=== PATIENT | male | born 1990 ===

== ENCOUNTER 2018-01-08 18:59 | Emergency (ER) | payer SELFPAY ==
[2018-01-08 19:08] VITALS: RESP 18
--- NOTE | 2018-01-08 19:39 | C.PDOC ---
History Of Present Illness 27 year old male presents to the ED c/o cough, congestion, sore throat, SOB for the past 2 days. Patient reports last night he noticed thick sputum with sneezing which concerned him and prompted the ED visit. Patient denies fever, chills, nausea, vomit, diarrhea, rash, recent travel, sick contacts. Time Seen by Provider: 01/08/18 19:21 Chief Complaint (Nursing): Cough, Cold, Congestion History Per: Patient History/Exam Limitations: no limitations Onset/Duration Of Symptoms: Days (2) Current Symptoms Are (Timing): Still Present Recent travel outside of the [place]: No Additional History Per: Patient Past Medical History Reviewed: Historical Data, Nursing Documentation, Vital Signs Vital Signs: Last Vital Signs Temp 98.5 F 01/08/18 20:06 Pulse 80 01/08/18 20:06 Resp 18 01/08/18 20:06 BP 148/78 01/08/18 20:06 Pulse Ox 99 01/08/18 22:46 - Medical History PMH: No Chronic Diseases Denies: Post Traumatic Stress Disorder Surgical History: No Surg Hx Family History: States: Unknown Family Hx - Social History Hx Alcohol Use: No Hx Substance Use: No - Immunization History Hx Tetanus Toxoid Vaccination: No Hx Influenza Vaccination: No Hx Pneumococcal Vaccination: No Review Of Systems Constitutional: Negative for: Fever, Chills ENT: Positive for: Nose Congestion, Throat Pain. Negative for: Throat Swelling Cardiovascular: Negative for: Chest Pain Respiratory: Positive for: Cough, Shortness of Breath Gastrointestinal: Negative for: Nausea, Vomiting, Abdominal Pain Skin: Negative for: Rash Physical Exam - Physical Exam Appears: Non-toxic, No Acute Distress Skin: Normal Color, Warm, Dry Head: Atraumatic, Normacephalic Eye(s): bilateral: Normal Inspection Ear(s): Bilateral: Normal Nose: No Discharge, Other (enalrged nasal turbinets more on right side) Oral Mucosa: Moist Throat: Normal, No Erythema, No Exudate Neck: Normal ROM, Supple Respiratory: Normal Breath Sounds, No Rales, No Rhonchi, No Wheezing Extremity: Normal ROM, No Tenderness, No Swelling Neurological/Psych: Oriented x3, Normal Speech, Normal Cognition Gait: Steady ED Course And Treatment O2 Sat by Pulse Oximetry: 99 (ON RA) Pulse Ox Interpretation: Normal Progress Note: On reassessment, patient is resting comfortably, and is in no acute distress. Patient was instructed to follow up with physician/clinic in 1- 2 days for further evaluation. Disposition - Disposition Disposition: HOME/ ROUTINE Disposition Time: 19:37 Condition: STABLE Additional Instructions: Please follow up in clinic Take meds as directed Return to ER if worse Prescriptions: Benzonatate [Tessalon Perles] 100 mg PO TID #20 sgl Cetirizine HCl [Zyrtec] 10 mg PO DAILY #20 capsule Mometasone Furoate [Nasonex] 2 spray NS DAILY #1 bottle Instructions: Seasonal Allergies (DC), Upper Respiratory Infection (ED) Forms: [employer] (Kyrgyz) - Clinical Impression Clinical Impression: Upper respiratory infection, Allergic rhinitis - PA / MRI TECHNICIAN / Resident Statement MD/DO has reviewed & agrees with the documentation as recorded. - Scribe Statement The provider has reviewed the documentation as recorded by the Scribe Viet Meyer All medical record entries made by the Scribe were at my direction and personally dictated by me. I have reviewed the chart and agree that the record accurately reflects my personal performance of the history, physical exam, medical decision making, and the department course for this patient. I have also personally directed, reviewed, and agree with the discharge instructions and disposition.
[2018-01-08 20:07] VITALS: BP 148/78; PULSE 80; TEMP 98.5
[2018-01-08 22:45] VITALS: O2SAT 99
== END 2018-01-08 20:07 | disposition home or self-care (01) ==
LOC: C.ER 18:59
DX: J30.9 Allergic rhinitis, unspecified (principal); J06.9 Acute upper respiratory infection, unspecified